=== PATIENT | male | born 1955 | race Caucasian/White ===

== ENCOUNTER 2016-10-13 15:49 | Emergency (ER) | payer MEDICARE, MEDICAID ==
[2016-10-13 16:03] VITALS: BP 156/96
--- NOTE | 2016-10-13 16:05 | EDM.PDOC ---
ED HPI GENERAL MEDICAL PROBLEM - General Chief Complaint: ENT Problem Stated Complaint: right ear Time Seen by Provider: 10/13/16 15:50 Source of Information: Reports: Patient, Family (Brother), Old records ([facility] chart/EMR) History Limitations: Reports: No limitations - History of Present Illness INITIAL COMMENTS - FREE TEXT/NARRATIVE: The patient was brought to the emergency room by his brother for evaluation of progressive clear nasal drainage and clear productive cough associated with some increasing vertigo during the last few days. Symptoms started at work on with the patient leaving work at about 10 a.m. that morning. He has not had an influenza booster this season. No history of fever or known exposure to infection. No history of recent headaches, other visual changes, diplopia, change in mental status, or other change in neurological status. He denies any true pain or otalgia, despite 5/10 full sensation in his right ear. Home Accu- Cheks have been stable including a blood sugar of 144 mg percent this morning Onset: gradual Onset Date: 10/08/16 Duration: Chronic, Getting worse Location: Reports: other (As above) Quality: Reports: Pressure, Same as previous episode Severity: mild Improves with: Reports: Rest Worsens with: Reports: Movement (Increased vertigo with head movement) Context: Reports: Other (As above) Associated Symptoms: Reports: cough w sputum. Denies: confusion, chest pain, diaphoresis, fever/chills, headaches, loss of appetite, malaise, nausea/vomiting , shortness of breath, syncope, weakness Treatments TOOL SMITH: Reports: Acetaminophen (Last Tylenol dose of 650 mg a.m. this morning), Other medication(s) (OTC cold medication earlier this month) Right Ear Pain Score (Numeric/FACES): 5 - Related Data Allergies Allergy/AdvReac Type Severity Reaction Status Date / Time No Known Allergies Allergy Verified 10/13/16 15:50 Home Meds: Home Meds Albuterol [Proair HFA] 1 puff INH Q6HR PRN 09/12/14 [History] Aspirin [Children's Aspirin] 81 mg PO QAM 09/12/14 [History] Betaxolol [Kerlone] 10 mg PO QAM 09/12/14 [History] Cholecalciferol (Vitamin D3) [Vitamin D3] 2,000 units PO QAM 09/12/14 [History] Colesevelam HCl [Welchol] 3.75 gm PO QAM 09/12/14 [History] Digoxin [Digox] 250 mcg PO QAM 09/12/14 [History] Hydroxychloroquine [Plaquenil] 200 mg PO QAM 09/12/14 [History] Ibuprofen 400 mg PO Q6HR PRN 09/12/14 [History] Lisinopril 10 mg PO QAM 09/12/14 [History] Omeprazole [Prilosec] 20 mg PO QAM 09/12/14 [History] metFORMIN [Glucophage] 1 tab PO BID 09/12/14 [History] Levothyroxine 150 mcg PO DAILY 10/22/15 [History] Dextromethorphan/guaiFENesin [Mucinex DM ER 600-30 MG] 1 tab PO BID #20 tab.er 10/13/16 [Rx] Meclizine [Antivert] 25 mg PO Q6H PRN #30 tablet 10/13/16 [Rx] Past Medical History HEENT History: Reports: None. Denies: Glaucoma, Hard of hearing, Impaired vision, Macular degeneration Cardiovascular History: Reports: Arrhythmia, CAD, Heart Failure, High cholesterol, Hypertension, Other (see below). Denies: Afib, Aneurysm, Blood clots/VTE/DVT, Heart murmur, AR, Pacemaker, Stents, Syncope Other Cardiovascular History: WPW syndrome with secondary tachycardia, PACs, PVCs, short run of nonsymptomatic ventricular tachycardia, complete right bundle branch block, fatty liver by CT scan Respiratory History: Reports: Asthma. Denies: PE, Sleep apnea Gastrointestinal History: Reports: Chronic constipation, Diverticulosis, Gastritis, GERD, Helicobacter pylori, Hiatal hernia, PUD, Other (see below) Other Gastrointestinal History: Sigmoid diverticulosis by CT scan, fatty liver, previously treated H. pylori, moderate hiatal hernia by CT scan Genitourinary History: Reports: BPH, Other (see below). Denies: Renal calculus , Retention, urinary, Urinary incontinence Other Genitourinary History: Benign renal cysts bilaterally by CT scan, history of questionable left sided hydronephrosis with negative workup and no procedures required. No history of nephrolithiasis Musculoskeletal History: Reports: Osteoarthritis. Denies: Fracture Neurological History: Reports: Other (see below) Other Neuro History: Mental retardation/Mental developmental delay Psychiatric History: Reports: None. Denies: Anxiety, Depression Endocrine/Metabolic History: Reports: Diabetes, type II, Hypothyroidism, Obesity /BMI 30+, Other (see below). Denies: IDDM, Osteoporosis Other Endocrine/Metabolic History: Benign thyroid nodules by ultrasound Hematologic History: Reports: None. Denies: Anemia, Blood transfusion(s), Iron deficiency Immunologic History: Reports: None. Denies: AIDS, HIV, SLE Oncologic (Cancer) History: Reports: None. Denies: Basal cell carcinoma, Hodgkin's Lymphoma, Leukemia, Lymphoma, Malignant melanoma, Non-Hodgkin's Lymphoma, Squamous cell carcinoma Dermatologic History: Reports: None. Denies: Eczema, Psoriasis - Infectious Disease History Infectious Disease History: Reports: Chicken pox, Helicobacter pylori, Measles, Mumps. Denies: C-difficile, Meningitis, Mononucleosis, MRSA, Pertussis ( whooping cough), Rubella, Scarlet fever, Shingles, TB, VRE - Past Surgical History HEENT Surgical History: Reports: Oral surgery, Other (see below) Other HEENT Surgeries/Procedures: [place] teeth extraction at about age 17 GI Surgical History: Reports: Colonoscopy, Other (see below) Other GI Surgeries/Procedures: Colonoscopy in 2013 - Past Imaging History Past Imaging History: Reports: Angiography (Heart catheterization at [facility] on 02/20/09 which was negative by patient history), Carotid US (06/25/04), CAT scan (CT of the abdomen and pelvis without contrast on 10/22/15 and 09/05/16, previous CT of the abdomen and pelvis on 04/29/13), MRI (Right knee on 08/21/14), Stress testing (Positive exercise portion of Cardiolite stress test for lateral wall cardiac ischemia on 06/10/04), Ultrasound (Abdominal ultrasound on 08/19/16, last thyroid ultrasound on 04/11/13) Social & Family History - Family History Cardiac: Reports: Bypass, CAD, AR, Other (see below) Other Cardiac Family History: Mother with CABG at age 49 with fatal AR at age 75 , father with fatal AR at age 48, brother from an AR at age 52, maternal grandfather with fatal AR at age 81, paternal grandfather with fatal AR in his 60s, 3 paternal uncles with fatal MIs in their 60s, paternal aunt with fatal AR in her 60s - Tobacco Use Smoking Status *Q: Never Smoker Smoking Cessation Information Provided To Patient: No Second Hand Smoke Exposure: No Second Hand Smoke Education Provided: No - Alcohol Use Alcohol Use History: No Days Per Week of Alcohol Use: 0 (No previous DWI, etc.) Alcohol Use in Last Twelve Months: No - Recreational Drug Use Recreational Drug Use: No Drug Use in Last 12 Months: No Recreational Drug Type: Denies: Amphetamines (Speed), Cocaine, Heroin, Inhalants (Glues, Solvents, Aerosols), LSD (Acid), Marijuana/Hashish, Methamphetamine, Morphine - Living Situation & Occupation Living situation: Reports: single (No children), with family (Brother Jaron) Occupation: employed ([employer]) ED ROS GENERAL - Review of Systems Review Of Systems: ROS reveals no pertinent complaints other than HPI. ED EXAM, GENERAL - Physical Exam Exam: See Below Exam Limited By: No limitations General Appearance: alert, WD/WN, no apparent distress Eye Exam: bilateral eye: EOMI, normal inspection (Mild vertigo with head movement without nystagmus), PERRL Ears: normal external exam, hearing grossly normal, normal TMs. No: normal canal (Moderate cerumen in the left EAC), hearing loss Nose: normal inspection, normal mucosa, no blood, clear rhinorrhea (Minimal) Throat/Mouth: Normal inspection, Normal lips, Normal teeth, Normal gums, Normal oropharynx, Normal voice, No airway compromise. No: Dysphagia, Perioral cyanosis Head: atraumatic, normocephalic. No: facial swelling, facial tenderness, sinus tenderness Neck: normal inspection, supple, non-tender, full range of motion. No: lymphadenopathy (L), lymphadenopathy (R), thyromegaly Respiratory/Chest: no respiratory distress, lungs clear, normal breath sounds, no accessory muscle use, chest non-tender. No: pleural rub, retractions Cardiovascular: normal peripheral pulses, regular rate, rhythm, no edema, no gallop, no JVD, no murmur, no rub. No: gallop/S3, gallop/S4, friction rub Peripheral Pulses: 2+: radial (L), radial (R) GI/Abdominal: normal bowel sounds, soft, non tender, no organomegaly, no distention, no abnormal bruit, no mass, other (Obese). No: guarding (Male) Exam: Deferred Rectal (Males) Exam: Deferred Back Exam: normal inspection, full range of motion. No: CVA tenderness (L), CVA tenderness (R), muscle spasm Extremities: normal range of motion, non-tender, normal capillary refill, pedal edema (Stable trace to +1 pedal/pretibial edema). No: Thalia's Sign Neurological: alert, oriented, CN II-XII intact, normal cognition, normal gait, no motor/sensory deficits, other ( stable mild mental retardation, no clinical orthostasis, dystaxia, etc.) Psychiatric: normal affect, normal mood Skin Exam: Warm, Dry, Intact, Normal color, No rash. No: Diaphoretic, Wound/ incision Lymphatic: no adenopathy Course - Vital Signs Last Recorded V/S: Last Vital Signs Temp 36.7 C 10/13/16 15:59 Pulse 83 10/13/16 15:59 Resp 20 10/13/16 15:59 BP 156/96 H 10/13/16 15:59 Pulse Ox 98 10/13/16 15:59 Vital Signs - 24 hr 10/13/16 15:59 Temperature [ 36.7 C Oral] Pulse, 83 Peripheral [ Left Brachial] Respiratory 20 Rate Blood Pressure 156/96 H [Left Upper Arm ] O2 Sat by Pulse 98 Oximetry - Orders/Labs/Meds Orders: Active Orders 24 hr Category Date Time Status Blood Glucose Check, Bedside [RC] STAT Care 10/13/16 16:05 Active Obtain Past Medical Record [OM.PC] Routine Oth 10/13/16 16:05 Active Labs: Accu-Chek of 153 mg percent Meds: Medications Discontinued Medications Generic Name Dose Route Start Last Admin Trade Name Freq PRN Reason Stop Dose Admin Methylprednisolone Acetate 80 mg 10/13/16 16:08 10/13/16 16:34 Depo-Medrol IM 10/13/16 16:09 80 mg ONETIME ONE Administration - Radiology Interpretation Free Text/Narrative:: None Departure - Departure Time of Disposition: 16:50 Disposition: Home, Self-Care 01 Clinical Impression: Hypothyroidism, Diabetes mellitus, Osteoarthritis, Hyperlipidemia, Heart disease, Peptic reflux disease, Viral labyrinthitis of right ear, Upper respiratory infection, Asthma, Hypertension Prescriptions: Dextromethorphan/guaiFENesin [Mucinex DM ER 600-30 MG] 1 tab PO BID #20 tab.er Meclizine [Antivert] 25 mg PO Q6H PRN #30 tablet PRN Reason: Dizziness Instructions: Labyrinthitis, [id number], Upper Respiratory Infection, Adult, [id number] Referrals: Mona Chavez, [employer] [Primary Care Provider] - Forms: ED Department Discharge, Return to Work/School Form Additional Instructions: 1. Follow up with your regular provider in 10-14 days as needed, if symptoms persist. 2. Tylenol 650 mg by mouth every 4 hours and/or OTC ibuprofen 2-3 tabs by mouth every 6 hours with food as directed./needed. 3. Your home blood sugars may be somewhat elevated during the next 1-2 weeks secondary to steroid injection given in the emergency room. Adjust diet appropriately 4. Sedation, dry mouth, confusion, etc. precautions with OTC meclizine 5. Work excuse- See Form - Problem List & Annotations (1) Viral labyrinthitis of right ear SNOMED Code(s): 391555757 Code(s): H83.01 - LABYRINTHITIS, RIGHT EAR Status: Acute Priority: High Current Visit: Yes Onset Date: ~10/08/16 Annotation/Comment:: IM Depo- Medrol given in the emergency room. OTC meclizine or symptomatic relief as per discharge instructions with sedation, etc. precautions given and discussed. Followup by regular provider depending on his clinical course. Work excuse provided (2) Upper respiratory infection SNOMED Code(s): 58026108 Code(s): J06.9 - ACUTE UPPER RESPIRATORY INFECTION, UNSPECIFIED Status: Acute Priority: High Current Visit: Yes Onset Date: 10/08/16 Annotation/ Comment:: Previous OTC cold preparations are to be discontinued with initiation of meclizine and Mucinex DM as per discharge instructions Qualifiers: URI type: unspecified viral URI Qualified Code(s): J06.9 - Acute upper respiratory infection, unspecified; B97.89 - Other viral agents as the cause of diseases classified elsewhere (3) Asthma SNOMED Code(s): 239740669 Code(s): J45.909 - UNSPECIFIED ASTHMA, UNCOMPLICATED Status: Acute Priority: Medium Current Visit: Yes Annotation/Comment:: No significant bronchitic-type symptoms with mostly clear mildly productive cough during the last few days likely secondary to viral infection with no fever, leukocytosis, etc.. Strict compliance with inhaler use was encouraged. Depo-Medrol will also be beneficial for his asthma (4) Diabetes mellitus SNOMED Code(s): 98457854 Code(s): E11.9 - TYPE 2 DIABETES MELLITUS WITHOUT COMPLICATIONS Status: Acute Priority: Medium Current Visit: Yes Annotation/Comment:: Blood sugars have been under good control by patient history as above. He was warned about possible increased morning Accu-Cheks secondary to Depo-Medrol injection today with dietary adjustments as needed as per discharge instructions (5) Heart disease SNOMED Code(s): 86450957 Code(s): I51.9 - HEART DISEASE, UNSPECIFIED Status: Chronic Priority: Medium Current Visit: Yes Annotation/Comment:: No anginal complaints with negative previous distant heart catheterization. Continue to observe his blood pressures closely to his regular provider. (6) Hyperlipidemia SNOMED Code(s): 67993316 Code(s): E78.5 - HYPERLIPIDEMIA, UNSPECIFIED Status: Acute Priority: Medium Current Visit: Yes Annotation/Comment:: Under therapy and watched by his regular providers (7) Hypothyroidism SNOMED Code(s): 41842126 Code(s): E03.9 - HYPOTHYROIDISM, UNSPECIFIED Status: Acute Priority: Medium Current Visit: Yes Annotation/Comment:: Patient denies medication noncompliance, although this has been a problem in the past (8) Osteoarthritis SNOMED Code(s): 527454338 Code(s): M19.90 - UNSPECIFIED OSTEOARTHRITIS, UNSPECIFIED SITE Status: Chronic Priority: Medium Current Visit: Yes Annotation/Comment:: Stable by history (9) Peptic reflux disease SNOMED Code(s): 63254064 Code(s): K21.9 - GASTRO-ESOPHAGEAL REFLUX DISEASE WITHOUT ESOPHAGITIS Status: Chronic Priority: Medium Current Visit: Yes Annotation/Comment:: Stable by history with previous large hiatal hernia by CT scan with previous history of treated H. pylori. (10) Hypertension SNOMED Code(s): 23352006 Code(s): I10 - ESSENTIAL (PRIMARY) HYPERTENSION Status: Chronic Priority : Medium Current Visit: Yes Annotation/Comment:: Mildly elevated today. Continue to observe closely by his regular provider Qualifiers: Hypertension type: essential hypertension Qualified Code(s): I10 - Essential (primary) hypertension - Problem List Review Problem List Initiated/Reviewed/Updated: Yes - My Orders Last 24 Hours: My Active Orders 10/13/16 16:05 Blood Glucose Check, Bedside [RC] STAT Obtain Past Medical Record [OM.PC] Routine - Assessment/Plan Last 24 Hours: My Active Orders 10/13/16 16:05 Blood Glucose Check, Bedside [RC] STAT Obtain Past Medical Record [OM.PC] Routine Assessment:: As above Plan: As above. Extensive precautions were given to the patient and his brother, who are in agreement with the treatment plan. See Patient Instructions for further treatment and plan.
[2016-10-13] MEDS ORDERED: methylPREDNISolone Acetate 80 MG/ML SDV IM ONE (16:08)
== END 2016-10-13 16:50 | disposition home or self-care (01) ==
LOC: LL.ED 15:49
DX: H83.01 Labyrinthitis, right ear (principal); E03.9 Hypothyroidism, unspecified; E11.9 Type 2 diabetes mellitus without complications; M19.90 Unspecified osteoarthritis, unspecified site; E78.5 Hyperlipidemia, unspecified; K21.9 Gastro-esophageal reflux disease without esophagitis; J45.909 Unspecified asthma, uncomplicated; J06.9 Acute upper respiratory infection, unspecified; I25.10 Atherosclerotic heart disease of native coronary artery without angina pectoris; E78.00 Pure hypercholesterolemia, unspecified; I11.0 Hypertensive heart disease with heart failure
CPT/HCPCS: 96372; 99283; J1040

== ENCOUNTER 2017-06-03 15:33 | Emergency (ER) | payer MEDICARE, MEDICAID ==
[2017-06-03 15:44] VITALS: BP 187/83
--- NOTE | 2017-06-03 15:45 | EDM.PDOC ---
ED HPI GENERAL MEDICAL PROBLEM - General Chief Complaint: Flank Pain Stated Complaint: right flank pain Time Seen by Provider: 06/03/17 15:39 Source of Information: Reports: Patient History Limitations: Reports: No Limitations - History of Present Illness INITIAL COMMENTS - FREE TEXT/NARRATIVE: Patient presents to the ER with 2 day history of right flank pain described as stabbing. Patient states that 2 days ago has some blood in his urine but none now. Onset: Gradual Duration: Day(s): (2 days) Location: Reports: Abdomen (Right flank) Quality: Reports: Stabbing Severity: Moderate Improves with: Reports: None Worsens with: Reports: Other (Lying down) Context: Reports: Sick Contact Associated Symptoms: Reports: Nausea/Vomiting - Related Data Allergies Allergy/AdvReac Type Severity Reaction Status Date / Time No Known Allergies Allergy Verified 10/13/16 15:50 Home Meds: Home Meds Albuterol [Proair HFA] 1 puff INH Q6HR PRN 09/12/14 [History] Aspirin [Children's Aspirin] 81 mg PO QAM 09/12/14 [History] Betaxolol [Kerlone] 10 mg PO QAM 09/12/14 [History] Cholecalciferol (Vitamin D3) [Vitamin D3] 2,000 units PO QAM 09/12/14 [History] Colesevelam HCl [Welchol] 3.75 gm PO QAM 09/12/14 [History] Hydroxychloroquine [Plaquenil] 200 mg PO QAM 09/12/14 [History] Ibuprofen 400 mg PO Q6HR PRN 09/12/14 [History] Lisinopril 10 mg PO QAM 09/12/14 [History] Omeprazole [Prilosec] 20 mg PO QAM 09/12/14 [History] metFORMIN [Glucophage] 1 tab PO BID 09/12/14 [History] Levothyroxine 150 mcg PO DAILY 10/22/15 [History] Dextromethorphan/guaiFENesin [Mucinex DM ER 600-30 MG] 1 tab PO BID #20 tab.er 10/13/16 [Rx] Meclizine [Antivert] 25 mg PO Q6H PRN #30 tablet 10/13/16 [Rx] Past Medical History HEENT History: Reports: None. Denies: Glaucoma, Hard of Hearing, Impaired Vision, Macular Degeneration Cardiovascular History: Reports: Arrhythmia, CAD, Heart Failure, High Cholesterol, Hypertension, Other (See Below) Other Cardiovascular History: WPW syndrome with secondary tachycardia, PACs, PVCs, short run of nonsymptomatic ventricular tachycardia, complete right bundle branch block, fatty liver by CT scan Respiratory History: Reports: Asthma. Denies: PE, Sleep Apnea Gastrointestinal History: Reports: Chronic Constipation, Diverticulosis, Gastritis, GERD, Helicobacter Pylori, Hiatal Hernia, PUD, Other (See Below) Other Gastrointestinal History: Sigmoid diverticulosis by CT scan, fatty liver, previously treated H. pylori, moderate hiatal hernia by CT scan Genitourinary History: Reports: BPH, Other (See Below) Other Genitourinary History: Benign renal cysts bilaterally by CT scan, history of questionable left sided hydronephrosis with negative workup and no procedures required. No history of nephrolithiasis Musculoskeletal History: Reports: Osteoarthritis. Denies: Fracture Neurological History: Reports: Other (See Below) Other Neuro History: Mental retardation/Mental developmental delay Psychiatric History: Reports: None. Denies: Anxiety, Depression Endocrine/Metabolic History: Reports: Diabetes, Type II, Hypothyroidism, Obesity /BMI 30+, Other (See Below) Other Endocrine/Metabolic History: Benign thyroid nodules by ultrasound Hematologic History: Reports: None. Denies: Anemia, Blood Transfusion(s), Iron Deficiency Immunologic History: Reports: None. Denies: AIDS, HIV, SLE Oncologic (Cancer) History: Reports: None. Denies: Basal Cell Carcinoma, Hodgkin's Lymphoma, Leukemia, Lymphoma, Malignant Melanoma, Non-Hodgkin's Lymphoma, Squamous Cell Carcinoma Dermatologic History: Reports: None. Denies: Eczema, Psoriasis - Infectious Disease History Infectious Disease History: Reports: Chicken Pox, Helicobacter Pylori, Measles, Mumps - Past Surgical History HEENT Surgical History: Reports: Oral Surgery, Other (See Below) GI Surgical History: Reports: Colonoscopy, Other (See Below) - Past Imaging History Past Imaging History: Reports: Angiography, Carotid US, CAT Scan, MRI, Stress Testing, Ultrasound Social & Family History - Family History Cardiac: Reports: Bypass, CAD, IA, Other (See Below) Other Cardiac Family History: Mother with CABG at age 49 with fatal IA at age 75 , father with fatal IA at age 48, brother from an IA at age 52, maternal grandfather with fatal IA at age 81, paternal grandfather with fatal IA in his 60s, 3 paternal uncles with fatal MIs in their 60s, paternal aunt with fatal IA in her 60s - Tobacco Use Smoking Status *Q: Never Smoker Second Hand Smoke Exposure: No - Alcohol Use Days Per Week of Alcohol Use: 0 (No previous DWI, etc.) - Recreational Drug Use Recreational Drug Use: No Drug Use in Last 12 Months: No - Living Situation & Occupation Living situation: Reports: Single, with Family Occupation: Employed ED ROS GENERAL - Review of Systems Review Of Systems: See Below Constitutional: Reports: Other (Severe right flank pain stabbing) HEENT: Reports: No Symptoms Respiratory: Reports: No Symptoms Cardiovascular: Reports: No Symptoms Endocrine: Reports: High Glucose GI/Abdominal: Reports: Other (Right flank pain) : Reports: Flank Pain (Described as stabbing) Musculoskeletal: Reports: No Symptoms Skin: Reports: No Symptoms Neurological: Reports: No Symptoms Psychiatric: Reports: No Symptoms Hematologic/Lymphatic: Reports: No Symptoms ED EXAM, GENERAL - Physical Exam Exam: See Below Exam Limited By: No Limitations General Appearance: Alert, WD/WN, Moderate Distress Eye Exam: Bilateral Eye: EOMI, Normal Inspection Ears: Normal External Exam, Normal Canal, Hearing Grossly Normal, Normal TMs Ear Exam: Bilateral Ear: Auricle Normal, Canal Normal, TM normal Nose: Normal Inspection, Normal Mucosa, No Blood Throat/Mouth: Normal Inspection, Normal Lips, Normal Teeth, Normal Gums, Normal Oropharynx, Normal Voice, No Airway Compromise Head: Atraumatic, Normocephalic Neck: Normal Inspection, Supple, Non-Tender, Full Range of Motion Respiratory/Chest: No Respiratory Distress, Lungs Clear, Normal Breath Sounds, No Accessory Muscle Use, Chest Non-Tender Cardiovascular: Normal Peripheral Pulses, Regular Rate, Rhythm, No Edema, No Gallop, No JVD, No Rub, Systolic Murmur GI/Abdominal: Normal Bowel Sounds, Soft, Non-Tender, No Organomegaly, No Distention, Pelvis Stable, Other (Right flank tenderness to percussion) (Male) Exam: Deferred Rectal (Males) Exam: Deferred Back Exam: CVA Tenderness (R) Extremities: Normal Inspection, Normal Range of Motion, Non-Tender, Normal Capillary Refill, No Pedal Edema Neurological: Alert, Oriented, CN II-XII Intact, Normal Cognition, Normal Gait, Normal Reflexes, No Motor/Sensory Deficits Psychiatric: Normal Affect Skin Exam: Warm, Dry, Intact, Normal Color, No Rash Lymphatic: No Adenopathy Course - Vital Signs Last Recorded V/S: Last Vital Signs Temp 98.3 F 06/03/17 15:43 Pulse 96 06/03/17 15:43 Resp 18 06/03/17 15:43 BP 187/83 H 06/03/17 15:43 Pulse Ox 97 06/03/17 15:43 - Orders/Labs/Meds Orders: Active Orders 24 hr Category Date Time Status Abdomen Pelvis wo Cont [CT] Stat Exams 06/03/17 16:08 Ordered BASIC METABOLIC PANEL,BMP [CHEM] Stat Lab 06/03/17 15:37 Ordered UA W/MICROSCOPIC [URIN] Stat Lab 06/03/17 15:38 Uncollected Sodium Chloride 0.9% [Saline Flush] Med 06/03/17 16:04 Active 10 ml FLUSH ASDIRECTED PRN Saline Lock Insert [OM.PC] Routine Oth 06/03/17 16:04 Ordered Medication Orders Sodium Chloride (Saline Flush) 10 ml FLUSH ASDIRECTED PRN PRN Reason: Keep Vein Open Labs: Laboratory Tests 06/03/17 Range/Units 16:00 WBC 8.3 (4.0-10.2) K/uL RBC 5.06 (4.33-5.41) M/uL Hgb 15.7 (13.1-16.8) g/dL Hct 47.1 (39.0-49.0) % MCV 93.1 (84.0-98.0) fL MCH 31.0 (28.2-33.3) pg MCHC 33.3 (31.7-36.0) g/dL RDW 13.1 (11.2-14.1) % Plt Count 244 (150-350) K/uL Neut % (Auto) 59.4 (45.0-80.0) % Lymph % (Auto) 27.7 (10.0-50.0) % [place] % (Auto) 7.7 (2.0-14.0) % Eos % (Auto) 4.8 (0.0-5.0) % Baso % (Auto) 0.4 (0.0-2.0) % Neut # (Auto) 4.94 (1.40-7.00) K/uL Lymph # (Auto) 2.30 (0.50-3.50) K/uL [place] # (Auto) 0.64 (0.00-1.00) K/uL Eos # (Auto) 0.40 (0.00-0.50) K/uL Baso # (Auto) 0.03 (0.00-0.20) K/uL Meds: Medications Generic Name Dose Route Start Last Admin Trade Name Freq PRN Reason Stop Dose Admin Sodium Chloride 10 ml 06/03/17 16:04 Saline Flush FLUSH ASDIRECTED PRN Keep Vein Open Discontinued Medications Generic Name Dose Route Start Last Admin Trade Name Freq PRN Reason Stop Dose Admin Hydromorphone HCl 1 mg 06/03/17 15:53 06/03/17 16:07 Dilaudid IVPUSH 06/03/17 15:54 1 mg ONETIME ONE Administration - Re-Assessments/Exams Free Text/Narrative Re-Assessment/Exam: 06/03/17 17:15 CAT scan negative for stones appendix appear normal UA negative for nitrates and leukocytes trace of protein secondary to diabetes Departure - Departure Time of Disposition: 17:16 Disposition: Home, Self-Care 01 Clinical Impression: Muscle strain - Discharge Information Referrals: Mona Chavez NP [Primary Care Provider] - Forms: ED Department Discharge Care Plan Goals: Patient sent home on Motrin 200 mg take 2 tablets every 6 hours for pain follow- up with primary or return to ER if worsen or not improving - My Orders Last 24 Hours: My Active Orders 06/03/17 15:37 BASIC METABOLIC PANEL,BMP [CHEM] Stat 06/03/17 15:38 UA W/MICROSCOPIC [URIN] Stat 06/03/17 16:04 Sodium Chloride 0.9% [Saline Flush] 10 ml FLUSH ASDIRECTED PRN Saline Lock Insert [OM.PC] Routine 06/03/17 16:08 Abdomen Pelvis wo Cont [CT] Stat - Assessment/Plan Last 24 Hours: My Active Orders 06/03/17 15:37 BASIC METABOLIC PANEL,BMP [CHEM] Stat 06/03/17 15:38 UA W/MICROSCOPIC [URIN] Stat 06/03/17 16:04 Sodium Chloride 0.9% [Saline Flush] 10 ml FLUSH ASDIRECTED PRN Saline Lock Insert [OM.PC] Routine 06/03/17 16:08 Abdomen Pelvis wo Cont [CT] Stat
[2017-06-03] MEDS ORDERED: HYDROmorphone 1 MG/ML Syringe IVPUSH ONE (15:53)
[2017-06-03] MEDS ORDERED: Sodium Chloride 0.9% 10 ML Syringe FLUSH PRN (16:04)
[2017-06-03 16:26] LABS: CHLORIDE,CL 102 mmol/L (98-107); SODIUM,NA 138 mmol/L (136-145)
== END 2017-06-03 17:43 | disposition home or self-care (01) ==
LOC: LL.ED 15:33
DX: T14.8XXA Other injury of unspecified body region, initial encounter (principal); I11.0 Hypertensive heart disease with heart failure; I50.9 Heart failure, unspecified; J45.909 Unspecified asthma, uncomplicated; E11.9 Type 2 diabetes mellitus without complications; E03.9 Hypothyroidism, unspecified; Z79.82 Long term (current) use of aspirin; Z79.84 Long term (current) use of oral hypoglycemic drugs; Z79.899 Other long term (current) drug therapy; X58.XXXA Exposure to other specified factors, initial encounter
CPT/HCPCS: 36415; 74176; 80048; 81001; 85025; 96374; 99284; J1170; J7050

== ENCOUNTER 2017-09-01 02:50 | Emergency (ER) | payer MEDICAID, MEDICARE ==
[2017-09-01 03:10] VITALS: BP 139/87
[2017-09-01] MEDS ORDERED: Albuterol/Ipratropium 3.0-0.5 MG/3 ML Neb Soln NEB ONE (03:18)
--- NOTE | 2017-09-01 03:18 | EDM.PDOC ---
ED HPI GENERAL MEDICAL PROBLEM - General Chief Complaint: General Stated Complaint: R RIB PAIN Time Seen by Provider: 09/01/17 03:10 Source of Information: Reports: Patient, Old Records ([facility] chart/EMR) History Limitations: Reports: Altered Mental Status (Mental deficit) - History of Present Illness INITIAL COMMENTS - FREE TEXT/NARRATIVE: The patient was brought to the emergency room via private automobile by his brother, Jaron, for evaluation of sudden onset sharp right lower anterior rib/ chest wall pain, which occurred when he coughed at about 00:30 a.m. this morning. He has a 2 day history of mild clear nasal drainage and nonproductive cough with symptoms improved with twice a day inhaler use and Mucinex DM. The patient denies any other chest pain/pressure, heart flutter, dizziness, orthostasis, orthopnea, diaphoresis, paresthesias, recent decreased exercise tolerance, or any other anginal-type symptoms. No recent history of abdominal pain, heartburn, nausea, diarrhea, melena, gross hematochezia, or any food intolerance, including fatty foods, etc.. He denies any fever or known exposure to infection. He did receive an influenza booster this season. He also denies any gross hematuria, colic, or other UTI symptoms. No history of recent headaches, visual changes, diplopia, change in mental status, or other change in neurological status. His diabetes has been under good control with Accu- Cheks normally taken in the a.m., which was in the 80s yesterday morning Onset: Today, Sudden Onset Date: 09/01/17 Onset Time: 00:30 Duration: Constant Location: Reports: Chest. Denies: Head, Face, Neck, Abdomen, Back, Upper Extremity, Left, Upper Extremity, Right, Generalized, Radiates to Quality: Reports: Sharp, Stabbing Severity: Severe Improves with: Reports: Rest Worsens with: Reports: Movement (Inspiration) Context: Reports: Other (As above) Associated Symptoms: Reports: Confusion, Chest Pain, Cough. Denies: cough w sputum, Diaphoresis, Fever/Chills, Headaches, Loss of Appetite, Malaise, Nausea/ Vomiting, Shortness of Breath, Syncope, Weakness Treatments [employer]: Reports: NSAIDS (400 mg of OTC ibuprofen immediately prior to arrival) Right Thoracic Pain Score (Numeric/FACES): 10 - Related Data Allergies Allergy/AdvReac Type Severity Reaction Status Date / Time No Known Allergies Allergy Verified 09/01/17 03:03 Home Meds: Home Meds Albuterol [Proair HFA] 1 puff INH Q6HR PRN 09/12/14 [History] Aspirin [Children's Aspirin] 81 mg PO QAM 09/12/14 [History] Betaxolol [Kerlone] 10 mg PO QAM 09/12/14 [History] Cholecalciferol (Vitamin D3) [Vitamin D3] 2,000 units PO QAM 09/12/14 [History] Colesevelam HCl [Welchol] 3.75 gm PO QAM 09/12/14 [History] Hydroxychloroquine [Plaquenil] 200 mg PO QAM 09/12/14 [History] Lisinopril 10 mg PO QAM 09/12/14 [History] Omeprazole [Prilosec] 20 mg PO QAM 09/12/14 [History] metFORMIN [Glucophage] 1 tab PO BID 09/12/14 [History] Levothyroxine 150 mcg PO DAILY 10/22/15 [History] Dextromethorphan/guaiFENesin [Mucinex DM ER 600-30 MG] 1 tab PO BID #20 tab.er 10/13/16 [Rx] Past Medical History HEENT History: Reports: None. Denies: Allergic Rhinitis, Glaucoma, Hard of Hearing, Impaired Vision, Macular Degeneration Cardiovascular History: Reports: Arrhythmia, CAD, Heart Failure, High Cholesterol, Hypertension, Other (See Below). Denies: Afib, Aneurysm, Blood Clots/VTE/DVT, Bypass, Heart Murmur, IN, Pacemaker, PTCA, Stents, Syncope Other Cardiovascular History: WPW syndrome with secondary tachycardia, PACs, PVCs, short run of nonsymptomatic ventricular tachycardia, complete right bundle branch block, fatty liver by CT scan Respiratory History: Reports: Asthma, Bronchitis, Recurrent. Denies: COPD, PE, Sleep Apnea Gastrointestinal History: Reports: Chronic Constipation, Diverticulosis, Gastritis, GERD, Helicobacter Pylori, Hiatal Hernia, PUD, Other (See Below). Denies: Celiac Disease, Cholelithiasis, Chronic Diarrhea, Colon Polyp, GI Bleed , Inflammatory Bowel Disease, Irritable Bowel Syndrome Other Gastrointestinal History: Sigmoid diverticulosis by CT scan, fatty liver, previously treated H. pylori, moderate hiatal hernia by CT scan Genitourinary History: Reports: BPH, Hydronephrosis, Renal Calculus, Other (See Below). Denies: Acute Renal Failure, Chronic Renal Insuffiency, Urinary Incontinence, UTI, Recurrent Other Genitourinary History: Benign renal cysts bilaterally by CT scan, history of left sided nephrolithiasis with previous hydronephrosis Musculoskeletal History: Reports: Arthritis, Back Pain, Chronic, Neck Pain, Chronic, Osteoarthritis. Denies: Fracture Neurological History: Reports: Other (See Below) Other Neuro History: Mental retardation/Mental developmental delay Psychiatric History: Reports: None. Denies: Anxiety, Depression Endocrine/Metabolic History: Reports: Diabetes, Type II, Hypothyroidism, Obesity /BMI 30+, Other (See Below). Denies: IDDM, Osteoporosis Other Endocrine/Metabolic History: Benign thyroid nodules by ultrasound Hematologic History: Reports: None. Denies: Anemia, Blood Transfusion(s), Iron Deficiency Immunologic History: Reports: None. Denies: AIDS, HIV, SLE Oncologic (Cancer) History: Reports: None. Denies: Basal Cell Carcinoma, Hodgkin's Lymphoma, Leukemia, Lymphoma, Malignant Melanoma, Non-Hodgkin's Lymphoma, Squamous Cell Carcinoma Dermatologic History: Reports: None. Denies: Eczema, Psoriasis - Infectious Disease History Infectious Disease History: Reports: Chicken Pox, Helicobacter Pylori, Measles, Mumps. Denies: C-Difficile, Meningitis, Mononucleosis, MRSA, Pertussis ( Whooping Cough), Rheumatic Fever, Rubella, Scarlet Fever, Shingles, TB, VRE - Past Surgical History Head Surgeries/Procedures: Reports: None HEENT Surgical History: Reports: Oral Surgery, Other (See Below) Other HEENT Surgeries/Procedures: [place] teeth extraction at about age 17 GI Surgical History: Reports: Colonoscopy, Other (See Below) Other GI Surgeries/Procedures: Colonoscopy in 2013 - Past Imaging History Past Imaging History: Reports: Angiography (Heart catheterization at [facility] on 02/20/09 which was negative by patient history), Carotid US (06/25/04), CAT Scan (CT of the abdomen and pelvis on 06/03/17, 09/05/16, 10/22/15, and 04/29/13), MRI (Right knee on 08/21/14), Stress Testing (Positive exercise portion of Cardiolite stress test for lateral wall cardiac ischemia on 06/10/04) , Ultrasound (Abdominal on 08/19/16. Last thyroid ultrasound on 04/11/13) Social & Family History - Family History Cardiac: Reports: Bypass, CAD, IN, Other (See Below) Other Cardiac Family History: Mother with CABG at age 49 with fatal IN at age 75 , father with fatal IN at age 48, brother from an IN at age 52, maternal grandfather with fatal IN at age 81, paternal grandfather with fatal IN in his 60s, 3 paternal uncles with fatal MIs in their 60s, paternal aunt with fatal IN in her 60s - Tobacco Use Smoking Status *Q: Never Smoker Tobacco Use Within Last Twelve Months: No Used Tobacco, but Quit: No Smoking Cessation Information Provided To Patient: No Second Hand Smoke Exposure: No Second Hand Smoke Education Provided: No - Caffeine Use Caffeine Use: Denies: Coffee, Energy Drinks, Soda, Tea - Alcohol Use Alcohol Use History: No Days Per Week of Alcohol Use: 0 (No previous DWI, etc.) Alcohol Use in Last Twelve Months: No - Recreational Drug Use Recreational Drug Use: No Drug Use in Last 12 Months: No Recreational Drug Type: Denies: Amphetamines (Speed), Cocaine, Heroin, Inhalants (Glues, Solvents, Aerosols), LSD (Acid), Marijuana/Hashish, Methamphetamine, Morphine - Living Situation & Occupation Living situation: Reports: Single (No children), with Family (Brother Jaron) Occupation: Employed ([employer]) ED ROS GENERAL - Review of Systems Review Of Systems: ROS reveals no pertinent complaints other than HPI. ED EXAM, GENERAL - Physical Exam Exam: See Below Exam Limited By: No Limitations General Appearance: Alert, WD/WN, No Apparent Distress Eye Exam: Bilateral Eye: EOMI, Normal Inspection (No nystagmus), PERRL Ears: Normal External Exam, Normal Canal (Moderate cerumen in the EACs bilaterally), Hearing Grossly Normal, Normal TMs Nose: Normal Mucosa, No Blood, Nasal Drainage, Clear Rhinorrhea (Mild bilateral) Throat/Mouth: Normal Inspection, Normal Lips, Normal Teeth, Normal Gums, Normal Oropharynx, Normal Voice, No Airway Compromise. No: Dysphagia, Perioral Cyanosis Head: Atraumatic, Normocephalic. No: Facial Swelling, Facial Tenderness, Sinus Tenderness Neck: Normal Inspection, Supple, Non-Tender, Full Range of Motion. No: Lymphadenopathy (L), Lymphadenopathy (R), Thyromegaly Respiratory/Chest: No Respiratory Distress, No Accessory Muscle Use, Rales ( Mild diffuse bilateral), Rhonchi (Mild diffuse bilateral), Wheezing (Mild diffuse bilateral). No: Chest Non-Tender (Moderate Palpation pain over the anterior lower chest wall/rib region with no crepitation, ecchymosis, deformity , etc.), Pleural Rub, Retractions Cardiovascular: Normal Peripheral Pulses, Regular Rate, Rhythm, No Edema, No Gallop, No JVD, No Murmur, No Rub. No: Gallop/S3, Gallop/S4, Friction Rub Peripheral Pulses: 2+: Radial (L), Radial (R) GI/Abdominal: Normal Bowel Sounds, Soft, Non-Tender, No Organomegaly, No Distention, No Abnormal Bruit, No Mass, Other (Obese). No: Guarding, Hernia (Male) Exam: Deferred Rectal (Males) Exam: Deferred Back Exam: Normal Inspection, Full Range of Motion. No: CVA Tenderness (L), CVA Tenderness (R), Muscle Spasm Extremities: Normal Range of Motion, Non-Tender, Normal Capillary Refill, Pedal Edema (+1 bilateral pedal/pretibial edema). No: Thalia's Sign Neurological: Alert, Oriented, CN II-XII Intact, Normal Cognition, Normal Gait, No Motor/Sensory Deficits, Other (Stable baseline mental deficit) Psychiatric: Normal Affect, Normal Mood Skin Exam: Warm, Dry, Intact, Normal Color, No Rash. No: Diaphoretic, Ecchymosis, Petechiae, Wound/Incision Lymphatic: No Adenopathy Course - Vital Signs Last Recorded V/S: Last Vital Signs Temp 36.7 C 09/01/17 02:51 Pulse 91 09/01/17 03:10 Resp 24 H 09/01/17 03:10 BP 139/87 09/01/17 03:10 Pulse Ox 98 09/01/17 03:10 Vital Signs - 24 hr 09/01/17 09/01/17 02:51 03:10 Temperature [ 36.7 C Temporal] Pulse, 96 91 Peripheral [ Right Pulse Oximetry] Respiratory 24 H 24 H Rate Blood Pressure 160/105 H 139/87 [Right Upper Arm] O2 Sat by Pulse 98 98 Oximetry - Orders/Labs/Meds Orders: Active Orders 24 hr Category Date Time Status RT Aerosol Therapy [RC] ASDIRECTED Care 09/01/17 03:20 Active Chest 2V [CR] Urgent Exams 09/01/17 03:28 Ordered Obtain Past Medical Record [OM.PC] Routine Oth 09/01/17 03:18 Active Labs: None Meds: Medications Discontinued Medications Generic Name Dose Route Start Last Admin Trade Name Buck PRN Reason Stop Dose Admin Albuterol/Ipratropium 3 ml 09/01/17 03:18 09/01/17 03:24 Duoneb 3.0-0.5 Mg/3 Ml NEB 09/01/17 03:19 3 ml ONETIME ONE Administration Meperidine HCl 50 mg 09/01/17 03:20 Demerol IM 09/01/17 03:21 ONETIME ONE Meperidine HCl 50 mg 09/01/17 03:29 Demerol IM 09/01/17 03:30 ONETIME ONE Methylprednisolone Acetate 80 mg 09/01/17 03:21 09/01/17 03:26 Depo-Medrol IM 09/01/17 03:22 80 mg ONETIME ONE Administration Promethazine HCl 50 mg 09/01/17 03:19 09/01/17 03:26 Phenergan IM 09/01/17 03:20 50 mg ONETIME ONE Administration - Radiology Interpretation Free Text/Narrative:: Chest x-ray, PA and lateral shows evidence of mild to moderate pulmonary obstructive disease with possible pulmonary hypertension but no cardiomegaly, CHF, pulmonary infiltrates, pneumothorax, rib fractures, etc. Departure - Departure Time of Disposition: 04:15 Disposition: Home, Self-Care 01 Condition: Good Clinical Impression: Peptic reflux disease, Diabetes mellitus, Asthma, Osteoarthritis, Chest wall pain, Bronchitis, Hyperlipidemia, Hypothyroidism Hypertension Qualifiers: Hypertension type: essential hypertension Qualified Code(s): I10 - Essential ( primary) hypertension - Discharge Information Instructions: Chest Wall Pain, [id number], Pleurisy, [id number] Referrals: Mona Chavez NP [Primary Care Provider] - Forms: ED Department Discharge, ED Return to Work/School Form Additional Instructions: 1. Follow up with your regular provider in 10-14 days as needed, if symptoms persist. 2. Tylenol 650 mg by mouth every 4 hours and/or OTC ibuprofen 2-3 tabs by mouth every 6 hours with food as directed./needed. 3. BenGay or equivalent, heating pad, and/or ice packs as directed. 4. Sedation precautions with no driving, etc. for 12 hours because of emergency room medications. 5. Work excuse- See Form 6. Continue to use your Mucinex DM 2 times a day for at least 10 days 7. Continue to use your inhaler 4 times a day with every 4 hours as needed for at least 10 days - Problem List & Annotations (1) Chest wall pain SNOMED Code(s): 844083878 Code(s): R07.89 - OTHER CHEST PAIN Status: Acute Priority: High Current Visit: Yes Onset Date: 09/01/17 Annotation/Comment:: Chest wall pain versus pleurisy with overall improvement in symptoms with medical therapy as above. Symptomatic treatment as per discharge instructions. Work excuse provided with sedation precautions also given (2) Asthma SNOMED Code(s): 542538594 Code(s): J45.909 - UNSPECIFIED ASTHMA, UNCOMPLICATED Status: Acute Priority: Medium Current Visit: Yes Annotation/Comment:: Mild bronchitic- type symptoms with nonproductive cough during the last couple of days likely secondary to viral infection with no fever, etc.. Strict compliance with inhaler use was encouraged with patient once again counseled on proper inhaler use. Depo-Medrol was given, which will be beneficial for his asthma and chest wall pain/? Pleurisy (3) Bronchitis SNOMED Code(s): 20962310 Code(s): J40 - BRONCHITIS, NOT SPECIFIED ACUTE OR CHRONIC Status: Acute Priority: High Current Visit: Yes Onset Date: ~08/30/17 Annotation/ Comment:: Mild viral bronchitis with no indication for antibiotic therapy at this time. Note no fever (4) Diabetes mellitus SNOMED Code(s): 21044505 Code(s): E11.9 - TYPE 2 DIABETES MELLITUS WITHOUT COMPLICATIONS Status: Chronic Priority: Medium Current Visit: Yes Annotation/Comment:: Blood sugars have been under good control by patient history as above. He was warned about possible increased morning Accu-Cheks secondary to Depo-Medrol injection today with dietary adjustments as needed. (5) Hyperlipidemia SNOMED Code(s): 37527059 Code(s): E78.5 - HYPERLIPIDEMIA, UNSPECIFIED Status: Acute Priority: Medium Current Visit: Yes Annotation/Comment:: Under therapy and watched by his regular providers (6) Hypertension SNOMED Code(s): 09692850 Code(s): I10 - ESSENTIAL (PRIMARY) HYPERTENSION Status: Acute Current Visit: Yes Annotation/Comment:: Blood pressure initially somewhat elevated secondary to his pain. Continue to observe closely by his regular providers Qualifiers: Hypertension type: essential hypertension Qualified Code(s): I10 - Essential (primary) hypertension (7) Hypothyroidism SNOMED Code(s): 67872774 Code(s): E03.9 - HYPOTHYROIDISM, UNSPECIFIED Status: Acute Priority: Medium Current Visit: Yes Annotation/Comment:: Patient denies medication noncompliance, although this has been a problem in the past (8) Osteoarthritis SNOMED Code(s): 095980014 Code(s): M19.90 - UNSPECIFIED OSTEOARTHRITIS, UNSPECIFIED SITE Status: Chronic Priority: Medium Current Visit: Yes Annotation/Comment:: Stable by history (9) Peptic reflux disease SNOMED Code(s): 48889653 Code(s): K21.9 - GASTRO-ESOPHAGEAL REFLUX DISEASE WITHOUT ESOPHAGITIS Status: Chronic Priority: Medium Current Visit: Yes Annotation/Comment:: Stable by history with previous large hiatal hernia by CT scan and previous history of treated H. pylori. - Problem List Review Problem List Initiated/Reviewed/Updated: Yes - My Orders Last 24 Hours: My Active Orders 09/01/17 03:18 Obtain Past Medical Record [OM.PC] Routine 09/01/17 03:20 RT Aerosol Therapy [RC] ASDIRECTED 09/01/17 03:28 Chest 2V [CR] Urgent - Assessment/Plan Last 24 Hours: My Active Orders 09/01/17 03:18 Obtain Past Medical Record [OM.PC] Routine 09/01/17 03:20 RT Aerosol Therapy [RC] ASDIRECTED 09/01/17 03:28 Chest 2V [CR] Urgent Assessment:: As above Plan: As above. Extensive precautions were given to the patient and his brother, Jaron, , who are in agreement with the treatment plan. See Patient Instructions for further treatment and plan.
[2017-09-01] MEDS ORDERED: Promethazine 25 MG/ML SDV IM ONE (03:19)
[2017-09-01] MEDS ORDERED: Meperidine PF 50 MG/ML Syringe IM ONE ×3 (03:20→03:34)
[2017-09-01] MEDS ORDERED: methylPREDNISolone Acetate 80 MG/ML SDV IM ONE (03:21)
== END 2017-09-01 04:15 | disposition home or self-care (01) ==
LOC: LL.ED 02:50
DX: K21.9 Gastro-esophageal reflux disease without esophagitis (principal); J45.909 Unspecified asthma, uncomplicated; E11.65 Type 2 diabetes mellitus with hyperglycemia; E03.9 Hypothyroidism, unspecified; M19.90 Unspecified osteoarthritis, unspecified site; I11.0 Hypertensive heart disease with heart failure; I50.9 Heart failure, unspecified; I25.10 Atherosclerotic heart disease of native coronary artery without angina pectoris; E78.00 Pure hypercholesterolemia, unspecified; Z79.82 Long term (current) use of aspirin; Z79.899 Other long term (current) drug therapy
CPT/HCPCS: 71046; 96372; 99284; J1040; J2175; J2550

== ENCOUNTER 2022-07-19 18:26 | Inpatient (IN) | payer MEDICAID, MEDICARE ==
[2022-07-19] MEDS ORDERED: methylPREDNISolone Sodium Succinate 125 MG/2 ML SDV IVPUSH ONE (19:30)
[2022-07-19 19:42] LABS: CORONAVIRUS COVID-19 NAA NEGATIVE (NEGATIVE); RESPIRATORY SYNCYTIAL VIR NAA NEGATIVE (NEGATIVE)
[2022-07-19] MEDS ORDERED: Albuterol/Ipratropium 3.0-0.5 MG/3 ML Neb Soln NEB ONE ×2 (19:46→20:05)
[2022-07-19 20:21] LABS: ANION GAP 10.7 meq/L (7-15)
[2022-07-19] MEDS ORDERED: Sodium Chloride 0.9% 1,000 ML IV ONE (20:41)
[2022-07-19] MEDS ORDERED: LORazepam 2 MG/ML SDV IVPUSH ONE (20:42)
[2022-07-19] MEDS ORDERED: Iopamidol 612 MG/ML 100 ML Bottle IVPUSH STA (20:57)
[2022-07-19] MEDS ORDERED: Iopamidol 755 Mg/ML 100 ML Bottle IVPUSH STA (21:13)
[2022-07-20] MEDS ORDERED: Sodium Chloride 0.9% 1,000 ML IV SCH (00:15)
[2022-07-20] MEDS: Azithromycin 500 MG in Sodium Chloride 0.9% 250 ML IV SCH ×2 (01:28→23:38)
[2022-07-20] MEDS ORDERED: Lisinopril 10 MG Tab PO ONE (02:25)
[2022-07-20] MEDS ORDERED: Atenolol 25 MG Tab PO ONE (02:26)
[2022-07-20] MEDS: cefTRIAXone 1 GM in Sodium Chloride 0.9% 100 ML IV SCH (02:44)
[2022-07-20] MEDS: Albuterol/Ipratropium 3.0-0.5 MG/3 ML Neb Soln NEB SCH ×4 (02:49→20:11)
[2022-07-20] MEDS ORDERED: Non-Formulary Medication 1 Each (Liraglutide [Victoza 2-Pak] 18 MG/3 ML Pen) SQ SCH (08:00)
[2022-07-20] MEDS ORDERED: BETAXOLOL 10 MG PO SCH (08:00)
[2022-07-20] MEDS: Dextromethorphan/guaiFENesin 600-30 MG Tab.ER PO SCH ×2 (08:19→17:11)
[2022-07-20] MEDS: Aspirin 81 MG Tab.Chew PO SCH (08:19)
[2022-07-20] MEDS: Tamsulosin 0.4 MG Cap.ER PO SCH (08:19)
[2022-07-20] MEDS: Clopidogrel 75 MG Tab PO SCH (08:19)
[2022-07-20] MEDS: Levothyroxine 100 MCG Tab PO SCH (08:20)
[2022-07-20] MEDS: Lisinopril 10 MG Tab PO SCH (08:45)
[2022-07-20] MEDS ORDERED: methylPREDNISolone Sodium Succinate 125 MG/2 ML SDV IVPUSH ONE (09:00)
[2022-07-20] MEDS ORDERED: Glucagon,Human Recombinant 1 MG Vial IM PRN (09:13)
[2022-07-20] MEDS ORDERED: 50% Dextrose in Water 50 ML Syringe IVPUSH PRN (09:13)
[2022-07-20 09:29] LABS: ANION GAP 11.3 meq/L (7-15)
[2022-07-20] MEDS ORDERED: Magnesium Sulfate/Water 2 GM in Premix Bag 1 BAG IV ONE (10:24)
[2022-07-20] MEDS: Furosemide 40 MG/4 ML VIAL IVPUSH SCH (11:28)
[2022-07-20] MEDS ORDERED: Insulin Regular, Human 100 Units/ML 3 ML Vial ONE (11:36)
[2022-07-20] MEDS: Insulin Regular, Human 100 Units/ML 3 ML Vial SUBCUT SCH ×3 (11:47→17:08)
[2022-07-20] MEDS ORDERED: atorvaSTATin 40 MG Tab PO SCH (20:00)
[2022-07-20] MEDS: Trospium 20 MG Tab PO SCH (20:11)
[2022-07-21] MEDS: cefTRIAXone 1 GM in Sodium Chloride 0.9% 100 ML IV SCH (01:08)
[2022-07-21] MEDS: Albuterol/Ipratropium 3.0-0.5 MG/3 ML Neb Soln NEB SCH ×3 (01:08→14:04)
[2022-07-21] MEDS: Aspirin 81 MG Tab.Chew PO SCH (07:34)
[2022-07-21] MEDS: Levothyroxine 100 MCG Tab PO SCH (07:34)
[2022-07-21] MEDS: Clopidogrel 75 MG Tab PO SCH (07:34)
[2022-07-21] MEDS: Tamsulosin 0.4 MG Cap.ER PO SCH (07:34)
[2022-07-21] MEDS: Lisinopril 10 MG Tab PO SCH (07:34)
[2022-07-21] MEDS: Trospium 20 MG Tab PO SCH (07:35)
[2022-07-21] MEDS: Dextromethorphan/guaiFENesin 600-30 MG Tab.ER PO SCH (07:35)
[2022-07-21] MEDS: Insulin Regular, Human 100 Units/ML 3 ML Vial SUBCUT SCH ×2 (07:36→11:34)
[2022-07-21] MEDS: Furosemide 40 MG/4 ML VIAL IVPUSH SCH (07:37)
[2022-07-21 07:43] LABS: ANION GAP 8.5 meq/L (7-15)
[2022-07-21] MEDS ORDERED: methylPREDNISolone Sodium Succinate 125 MG/2 ML SDV IVPUSH ONE (08:00)
[2022-07-21 11:39] VITALS: BP 127/79; PULSE 104
== END 2022-07-21 16:30 | disposition home or self-care (01) | DRG 194 ==
LOC: LL.ED 18:26 → LL.MS 23:16 → OBSVTOIN 07-20 09:59
PROVIDERS: ADMIT Emergency Medicine; ATTEND Emergency Medicine
DX: J18.9 Pneumonia, unspecified organism (principal); J44.0 Chronic obstructive pulmonary disease with (acute) lower respiratory infection; E83.42 Hypomagnesemia; E78.00 Pure hypercholesterolemia, unspecified; J44.9 Chronic obstructive pulmonary disease, unspecified; I10 Essential (primary) hypertension; I45.10 Unspecified right bundle-branch block; I25.10 Atherosclerotic heart disease of native coronary artery without angina pectoris; I50.9 Heart failure, unspecified; K59.09 Other constipation; K57.90 Diverticulosis of intestine, part unspecified, without perforation or abscess without bleeding; Z79.82 Long term (current) use of aspirin; Z79.84 Long term (current) use of oral hypoglycemic drugs; Z20.822 Contact with and (suspected) exposure to COVID-19; K21.9 Gastro-esophageal reflux disease without esophagitis; M19.90 Unspecified osteoarthritis, unspecified site; M54.9 Dorsalgia, unspecified; M54.2 Cervicalgia; G89.29 Other chronic pain; E03.9 Hypothyroidism, unspecified; E11.9 Type 2 diabetes mellitus without complications; N40.0 Benign prostatic hyperplasia without lower urinary tract symptoms; I11.0 Hypertensive heart disease with heart failure; Z79.899 Other long term (current) drug therapy
CPT/HCPCS: 0241U; 36415; 71046; 71275; 80048; 80053; 81003; 82947; 83605; 83735; 83880; 84484; 85025; 85379; 93005; 94640; 96361; 96365; 96367; 96374; 96375; 96376; 97162-GP; 99285-25; A9270-GY; G0378; J0456; J0696; J1815-GY; J1940; J2060; J2930; J3475; J7030; J7050; J7620-GY; Q9967

== ENCOUNTER 2023-09-15 08:17 | Inpatient (IN) | payer MEDICARE ==
[2023-09-15 08:44] LABS: BASOPHILS ABSOLUTE AUTO 0.07 K/uL (0.00-0.20); BASOPHILS PERCENT AUTO 0.7 % (0.0-2.0); EOSINOPHILS ABSOLUTE AUTO 0.23 K/uL (0.00-0.50); EOSINOPHILS PERCENT AUTO 2.2 % (0.0-5.0); HEMATOCRIT 43.5 % (39.0-49.0); HEMOGLOBIN 14.6 g/dL (13.1-16.8); LYMPHOCYTES PERCENT AUTO 20.3 % (10.0-50.0); MEAN CORPUSCULAR HEMOGLOBIN 30.9 pg (28.2-33.3); MEAN CORPUSCULAR HGB CONC 33.6 g/dL (31.7-36.0); MONOCYTES ABSOLUTE AUTO 1.17 K/uL (0.00-1.00); MONOCYTES PERCENT AUTO 11.3 % (2.0-14.0); NEUTROPHILS ABSOLUTE AUTO 6.75 K/uL (1.40-7.00); NEUTROPHILS PERCENT AUTO 65.5 % (45.0-80.0); PLATELET COUNT,PLT 218 K/uL (150-350); RED BLOOD CELL COUNT 4.73 M/uL (4.33-5.41); RED CELL DISTRIBUTION WIDTH 13.6 % (11.2-14.1); WHITE BLOOD CELL COUNT,WBC 10.3 K/uL (4.0-10.2)
[2023-09-15] MEDS: Sodium Chloride 0.9% 1,000 ML IV ONE ×2 (08:45→10:13)
[2023-09-15] MEDS: Morphine 2 MG/ML SYRINGE IVPUSH ONE (08:47)
[2023-09-15] MEDS: Ondansetron 4 MG/2 ML SDV IVPUSH ONE (08:49)
[2023-09-15] MEDS: Sodium Chloride 0.9% 10 ML Syringe FLUSH PRN (08:55)
[2023-09-15 09:14] LABS: ALANINE AMINOTRANSFERASE,ALT 107 U/L (12-78); ALBUMIN 3.2 g/dL (3.4-5.0); ALKALINE PHOSPHATASE 139 IU/L (46-116); ANION GAP 14.8 meq/L (7-15); ASPARTATE AMNIOTRANSFERASE,AST 63 U/L (15-37); BLOOD UREA NITROGEN,BUN 19 mg/dL (7-18); CALCIUM 9.4 mg/dL (8.5-10.1); CARBON DIOXIDE,CO2 24.1 mmol/L (21.0-32.0); CHLORIDE,CL 98 mmol/L (98-107); CREATININE 1.43 mg/dL (0.51-1.17); MAGNESIUM 1.5 mg/dL (1.8-2.4); POTASSIUM,K 3.9 mmol/L (3.5-5.1); PRO B-TYPE NATRIUR PEPT,BNPPRO 589 pg/mL (0-125); PROTEIN TOTAL,TP 7.2 g/dL (6.4-8.2); SODIUM,NA 133 mmol/L (136-145)
[2023-09-15 09:15] LABS: ESTIMATED GFR 54 mL/min (>=60); GLUCOSE RANDOM 452 mg/dL (70-99)
[2023-09-15] MEDS ORDERED: Glucagon,Human Recombinant 1 MG Vial IM PRN ×3 (09:18→13:27)
[2023-09-15] MEDS ORDERED: 50% Dextrose in Water 50 ML Syringe IVPUSH PRN ×3 (09:18→13:27)
[2023-09-15 09:20] LABS: APPEARANCE,URINE SLIGHTLY CLOUDY; BILIRUBIN,URINE NEGATIVE (NEGATIVE); COLOR,URINE YELLOW; GLUCOSE,URINE 500 mg/dL (NEGATIVE); KETONES,URINE 15 mg/dL (NEGATIVE); LEUKOCYTE ESTERASE,URINE NEGATIVE (NEGATIVE); NITRITE,URINE NEGATIVE (NEGATIVE); OCCULT BLOOD,URINE NEGATIVE (NEGATIVE); PH,URINE 5.5 (5.0-9.0); PROTEIN,URINE TRACE mg/dL (NEGATIVE); UROBILINOGEN,URINE 0.2 E.U./dL (0.2-1.0)
[2023-09-15] MEDS: Insulin Regular, Human 100 Units/ML 3 ML Vial SUBCUT ONE ×2 (09:31→11:53)
[2023-09-15 09:34] LABS: BACTERIA,URINE RARE /HPF (NONE TO FEW); EPITHELIAL CELLS,URINE RARE /LPF; RBC,URINE 0-5 /HPF; WBC,URINE 0-5 /HPF
[2023-09-15] MEDS: Magnesium Sulfate/Water 2 GM in Premix Bag 1 BAG IV ONE (09:37)
[2023-09-15 10:14] LABS: CORONAVIRUS COVID-19 NAA NEGATIVE (NEGATIVE); INFLUENZA A NAA NEGATIVE (NEGATIVE); INFLUENZA B NAA NEGATIVE (NEGATIVE); RESPIRATORY SYNCYTIAL VIR NAA NEGATIVE (NEGATIVE)
[2023-09-15] MEDS: Iopamidol 755 Mg/ML 100 ML Bottle IVPUSH STA (10:31)
[2023-09-15] MEDS: Acetaminophen 325 MG Tab PO ONE (10:54)
[2023-09-15] MEDS: Orphenadrine 60 MG/2 ML Inj IV ONE (10:57)
[2023-09-15] MEDS: Sodium Chloride 0.9% 1,000 ML IV SCH (12:00)
[2023-09-15] MEDS ORDERED: Orphenadrine 60 MG/2 ML Inj IM SCH (13:30)
[2023-09-15] MEDS ORDERED: Albuterol 6.7 GM Inhaler INH PRN (14:46)
[2023-09-15 17:24] LABS: HEMOGLOBIN A1C > 14.0 % (4.3-5.7)
[2023-09-15] MEDS: Insulin Regular, Human 100 Units/ML 3 ML Vial SUBCUT SCH (18:21)
[2023-09-15] MEDS: Insulin Glarg,Human.Rec.Analog 100 Unit/ML 10 ML Vial SUBCUT SCH (18:24)
[2023-09-15] MEDS: Enoxaparin 60 MG/0.6 ML Syringe SUBCUT SCH (18:27)
[2023-09-15] MEDS: Orphenadrine 100 MG Tab.ER PO SCH (20:07)
[2023-09-15] MEDS: atorvaSTATin 40 MG Tab PO SCH (20:07)
[2023-09-15] MEDS: Acetaminophen 325 MG Tab PO PRN (20:11)
[2023-09-16] MEDS: Ezetimibe 10 MG Tab PO SCH (07:28)
[2023-09-16] MEDS: Pantoprazole 40 MG Tab.CR PO SCH (07:28)
[2023-09-16] MEDS: Aspirin 81 MG Tab.EC PO SCH (07:28)
[2023-09-16] MEDS: Levothyroxine 150 MCG Tab PO SCH (07:28)
[2023-09-16] MEDS: Lisinopril 10 MG Tab PO SCH (07:28)
[2023-09-16] MEDS: Tamsulosin 0.4 MG Cap.ER PO SCH (07:28)
[2023-09-16 07:46] LABS: ANION GAP 6.4 meq/L (7-15); CALCIUM 8.4 mg/dL (8.5-10.1); CARBON DIOXIDE,CO2 25.6 mmol/L (21.0-32.0); CREATININE 1.12 mg/dL (0.51-1.17); EST CRCL DRUG DOSING (CG) 69.1 mL/min; MAGNESIUM 1.7 mg/dL (1.8-2.4)
[2023-09-16 08:07] LABS: BASOPHILS ABSOLUTE AUTO 0.03 K/uL (0.00-0.20); BASOPHILS PERCENT AUTO 0.4 % (0.0-2.0); EOSINOPHILS ABSOLUTE AUTO 0.23 K/uL (0.00-0.50); EOSINOPHILS PERCENT AUTO 3.1 % (0.0-5.0); HEMATOCRIT 38.4 % (39.0-49.0); HEMOGLOBIN 12.4 g/dL (13.1-16.8); LYMPHOCYTES ABSOLUTE AUTO 2.06 K/uL (0.50-3.50); LYMPHOCYTES PERCENT AUTO 27.8 % (10.0-50.0); MEAN CORPUSCULAR HEMOGLOBIN 30.5 pg (28.2-33.3); MEAN CORPUSCULAR HGB CONC 32.3 g/dL (31.7-36.0); MEAN CORPUSCULAR VOLUME 94.3 fL (84.0-98.0); MONOCYTES ABSOLUTE AUTO 0.99 K/uL (0.00-1.00); MONOCYTES PERCENT AUTO 13.4 % (2.0-14.0); NEUTROPHILS ABSOLUTE AUTO 4.09 K/uL (1.40-7.00); NEUTROPHILS PERCENT AUTO 55.3 % (45.0-80.0); PLATELET COUNT,PLT 190 K/uL (150-350); RED BLOOD CELL COUNT 4.07 M/uL (4.33-5.41); RED CELL DISTRIBUTION WIDTH 13.5 % (11.2-14.1); WHITE BLOOD CELL COUNT,WBC 7.4 K/uL (4.0-10.2)
[2023-09-16] MEDS: Sodium Chloride 0.9% 10 ML Syringe FLUSH SCH (17:18)
[2023-09-16] MEDS: Insulin Regular, Human 100 Units/ML 3 ML Vial SUBCUT ONE (20:55)
[2023-09-17 07:27] LABS: BASOPHILS ABSOLUTE AUTO 0.03 K/uL (0.00-0.20); BASOPHILS PERCENT AUTO 0.4 % (0.0-2.0); EOSINOPHILS ABSOLUTE AUTO 0.31 K/uL (0.00-0.50); EOSINOPHILS PERCENT AUTO 4.6 % (0.0-5.0); HEMATOCRIT 42.3 % (39.0-49.0); HEMOGLOBIN 13.7 g/dL (13.1-16.8); LYMPHOCYTES ABSOLUTE AUTO 2.46 K/uL (0.50-3.50); LYMPHOCYTES PERCENT AUTO 36.6 % (10.0-50.0); MEAN CORPUSCULAR HEMOGLOBIN 30.6 pg (28.2-33.3); MEAN CORPUSCULAR HGB CONC 32.4 g/dL (31.7-36.0); MEAN CORPUSCULAR VOLUME 94.4 fL (84.0-98.0); MONOCYTES ABSOLUTE AUTO 0.61 K/uL (0.00-1.00); MONOCYTES PERCENT AUTO 9.1 % (2.0-14.0); NEUTROPHILS ABSOLUTE AUTO 3.31 K/uL (1.40-7.00); NEUTROPHILS PERCENT AUTO 49.3 % (45.0-80.0); PLATELET COUNT,PLT 210 K/uL (150-350); RED BLOOD CELL COUNT 4.48 M/uL (4.33-5.41); RED CELL DISTRIBUTION WIDTH 13.7 % (11.2-14.1); WHITE BLOOD CELL COUNT,WBC 6.7 K/uL (4.0-10.2)
[2023-09-17 07:41] LABS: ANION GAP 6.8 meq/L (7-15); CALCIUM 9.1 mg/dL (8.5-10.1); CARBON DIOXIDE,CO2 29.2 mmol/L (21.0-32.0); CREATININE 1.18 mg/dL (0.51-1.17); EST CRCL DRUG DOSING (CG) 65.59 mL/min; POTASSIUM,K 4.4 mmol/L (3.5-5.1)
[2023-09-17 15:03] VITALS: BP 127/78; PULSE 101
== END 2023-09-17 15:30 | disposition home or self-care (01) | DRG 638 ==
LOC: LL.ED 08:17 → LL.MS 12:09
PROVIDERS: ADMIT Emergency Medicine; ATTEND Emergency Medicine
DX: E11.65 Type 2 diabetes mellitus with hyperglycemia (principal); E87.20 Acidosis, unspecified; R74.02 Elevation of levels of lactic acid dehydrogenase [LDH]; E86.0 Dehydration; G31.84 Mild cognitive impairment of uncertain or unknown etiology; E78.00 Pure hypercholesterolemia, unspecified; I50.9 Heart failure, unspecified; I11.0 Hypertensive heart disease with heart failure; J44.9 Chronic obstructive pulmonary disease, unspecified; K59.09 Other constipation; K21.9 Gastro-esophageal reflux disease without esophagitis; N40.0 Benign prostatic hyperplasia without lower urinary tract symptoms; M54.2 Cervicalgia; G89.29 Other chronic pain; M19.90 Unspecified osteoarthritis, unspecified site; E03.9 Hypothyroidism, unspecified; K76.0 Fatty (change of) liver, not elsewhere classified; I25.10 Atherosclerotic heart disease of native coronary artery without angina pectoris; E83.42 Hypomagnesemia; E78.5 Hyperlipidemia, unspecified; B34.9 Viral infection, unspecified; Z79.51 Long term (current) use of inhaled steroids; Z79.84 Long term (current) use of oral hypoglycemic drugs; Z79.82 Long term (current) use of aspirin; Z79.4 Long term (current) use of insulin; Z79.899 Other long term (current) drug therapy; Z98.890 Other specified postprocedural states
CPT/HCPCS: 0241U; 36415; 71045; 71260; 74177; 80048; 80053; 81001; 82947; 83036; 83605; 83735; 83880; 84443; 84484; 85025; 85379; 93005; 93010; 97162-GP; 97165-GO; A9270-GY; J1650; J1815-GY; J2270; J2360; J2405; J3475; J3490; J7030; Q9967

== ENCOUNTER 2025-04-17 21:30 | Inpatient (IN) | payer MEDICARE ==
[2025-04-17] MEDS ORDERED: Naloxone 0.4 MG/ML SDV IVPUSH PRN (21:45)
[2025-04-17] MEDS: Ondansetron 4 MG/2 ML SDV IVPUSH ONE (21:52)
[2025-04-17] MEDS: Alum Hydrox/Mag Hydrox/Simeth 30 ML, Lidocaine 2% 15 ML PO ONE (21:58)
[2025-04-17] MEDS: Sodium Chloride 0.9% 10 ML Syringe FLUSH PRN (21:59)
[2025-04-17 22:00] LABS: BASOPHILS ABSOLUTE AUTO 0.05 K/uL (0.00-0.20); BASOPHILS PERCENT AUTO 0.5 % (0.0-2.0); EOSINOPHILS ABSOLUTE AUTO 0.31 K/uL (0.00-0.50); EOSINOPHILS PERCENT AUTO 3.0 % (0.0-5.0); IMMATURE GRAN ABSOLUTE AUTO 0.02 10^3/uL (0.00-0.04); IMMATURE GRAN PERCENT AUTO 0.2 % (0.0-0.4); LYMPHOCYTES ABSOLUTE AUTO 3.77 K/uL (0.50-3.50); LYMPHOCYTES PERCENT AUTO 36.1 % (10.0-50.0); MONOCYTES ABSOLUTE AUTO 0.83 K/uL (0.00-1.00); MONOCYTES PERCENT AUTO 8.0 % (2.0-14.0); NEUTROPHILS ABSOLUTE AUTO 5.46 K/uL (1.40-7.00); NEUTROPHILS PERCENT AUTO 52.2 % (45.0-80.0); PLATELET COUNT,PLT 220 K/uL (150-350); RED BLOOD CELL COUNT 5.05 M/uL (4.33-5.41); RED CELL DISTRIBUTION WIDTH 12.6 % (11.2-14.1); WHITE BLOOD CELL COUNT,WBC 10.4 K/uL (4.0-10.2)
[2025-04-17 22:25] LABS: ALANINE AMINOTRANSFERASE,ALT 36.0 U/L (12-78); ASPARTATE AMNIOTRANSFERASE,AST 29.0 U/L (15-37); BILIRUBIN TOTAL 0.7 mg/dL (0.2-1.0); BLOOD UREA NITROGEN,BUN 22.0 mg/dL (7-18); CARBON DIOXIDE,CO2 24.7 mmol/L (21.0-32.0); CHLORIDE,CL 103.0 mmol/L (98-107); CREATININE 1.34 mg/dL (0.51-1.17); EST CRCL DRUG DOSING (CG) 56.19 mL/min; ESTIMATED GFR 58.0 mL/min (>=60); GLUCOSE RANDOM 183.0 mg/dL (70-99); POTASSIUM,K 4.2 mmol/L (3.5-5.1); PROTEIN TOTAL,TP 7.7 g/dL (6.4-8.2); SODIUM,NA 142.0 mmol/L (136-145)
[2025-04-17 22:30] LABS: LACTIC ACID 2.9 mmol/L (0.4-2.0)
[2025-04-17] MEDS: Ketorolac 15 MG/ML SDV IVPUSH ONE (22:56)
[2025-04-17] MEDS: Iopamidol 612 MG/ML 100 ML Bottle ONE (23:10)
[2025-04-17] MEDS: Lactated Ringers 1,000 ML IV SCH (23:24)
[2025-04-18] MEDS ORDERED: Ondansetron 4 MG/2 ML SDV IVPUSH PRN (00:34)
[2025-04-18] MEDS: Magnesium Hydroxide 400 MG/5 ML Susp 30 ML Cup PO ONE (00:44)
[2025-04-18] MEDS: Lactated Ringers 1,000 ML IV SCH (02:11)
[2025-04-18 07:36] LABS: BASOPHILS ABSOLUTE AUTO 0.05 K/uL (0.00-0.20); BASOPHILS PERCENT AUTO 0.5 % (0.0-2.0); EOSINOPHILS ABSOLUTE AUTO 0.16 K/uL (0.00-0.50); EOSINOPHILS PERCENT AUTO 1.6 % (0.0-5.0); IMMATURE GRAN ABSOLUTE AUTO 0.02 10^3/uL (0.00-0.04); IMMATURE GRAN PERCENT AUTO 0.2 % (0.0-0.4); LYMPHOCYTES ABSOLUTE AUTO 3.43 K/uL (0.50-3.50); LYMPHOCYTES PERCENT AUTO 35.0 % (10.0-50.0); MONOCYTES ABSOLUTE AUTO 0.71 K/uL (0.00-1.00); MONOCYTES PERCENT AUTO 7.2 % (2.0-14.0); NEUTROPHILS ABSOLUTE AUTO 5.43 K/uL (1.40-7.00); NEUTROPHILS PERCENT AUTO 55.5 % (45.0-80.0); PLATELET COUNT,PLT 193 K/uL (150-350); RED BLOOD CELL COUNT 4.30 M/uL (4.33-5.41); RED CELL DISTRIBUTION WIDTH 12.8 % (11.2-14.1); WHITE BLOOD CELL COUNT,WBC 9.8 K/uL (4.0-10.2)
[2025-04-18 07:58] LABS: ALANINE AMINOTRANSFERASE,ALT 29.0 U/L (12-78); ASPARTATE AMNIOTRANSFERASE,AST 22.0 U/L (15-37); BILIRUBIN TOTAL 0.6 mg/dL (0.2-1.0); BLOOD UREA NITROGEN,BUN 23.0 mg/dL (7-18); CARBON DIOXIDE,CO2 30.2 mmol/L (21.0-32.0); CHLORIDE,CL 102.0 mmol/L (98-107); CREATININE 1.32 mg/dL (0.51-1.17); EST CRCL DRUG DOSING (CG) 57.05 mL/min; GLUCOSE RANDOM 187.0 mg/dL (70-99); POTASSIUM,K 4.8 mmol/L (3.5-5.1); PROTEIN TOTAL,TP 6.4 g/dL (6.4-8.2); SODIUM,NA 140.0 mmol/L (136-145)
[2025-04-18 08:00] LABS: ESTIMATED GFR 59.0 mL/min (>=60)
[2025-04-18] MEDS ORDERED: BETAXOLOL 10 MG PO SCH (08:00)
[2025-04-18] MEDS: Cholecalciferol (Vitamin D3) 25 MCG Tab PO SCH (08:05)
[2025-04-18] MEDS: Insulin Glarg,Human.Rec.Analog 100 Unit/ML 10 ML Vial SUBCUT SCH (08:08)
[2025-04-18 08:09] LABS: APPEARANCE,URINE CLEAR; GLUCOSE,URINE 100 mg/dL (NEGATIVE); OCCULT BLOOD,URINE NEGATIVE (NEGATIVE)
[2025-04-18] MEDS ORDERED: Lactated Ringers 1,000 ML IV SCH (09:30)
[2025-04-18] MEDS: Nystatin Topical Powder 15 GM Bottle TOP SCH (12:23)
[2025-04-18] MEDS ORDERED: Nystatin Topical Powder 15 GM Bottle TOP SCH (13:00)
[2025-04-18] MEDS: Iopamidol 612 MG/ML 100 ML Bottle IVPUSH ONE (21:01)
[2025-04-18 21:52] VITALS: PULSE 94
[2025-04-19 07:37] VITALS: BP 143/67
== END 2025-04-19 11:48 | disposition home or self-care (01) | DRG 641 ==
LOC: LL.ED 21:30 → OBSVTOIN 04-18 00:10 → LL.MS 04-18 00:10
PROVIDERS: ADMIT Physician Assistant; ATTEND Physician Assistant
DX: E86.0 Dehydration (principal); E87.20 Acidosis, unspecified; R11.2 Nausea with vomiting, unspecified; I25.10 Atherosclerotic heart disease of native coronary artery without angina pectoris; E66.9 Obesity, unspecified; E03.9 Hypothyroidism, unspecified; E11.9 Type 2 diabetes mellitus without complications; N40.0 Benign prostatic hyperplasia without lower urinary tract symptoms; K21.9 Gastro-esophageal reflux disease without esophagitis; M19.90 Unspecified osteoarthritis, unspecified site; Z79.51 Long term (current) use of inhaled steroids; E78.00 Pure hypercholesterolemia, unspecified; I11.0 Hypertensive heart disease with heart failure; I50.9 Heart failure, unspecified; J44.9 Chronic obstructive pulmonary disease, unspecified; K59.09 Other constipation; M54.9 Dorsalgia, unspecified; G89.29 Other chronic pain; M54.2 Cervicalgia; Z79.899 Other long term (current) drug therapy; Z79.52 Long term (current) use of systemic steroids; Z79.84 Long term (current) use of oral hypoglycemic drugs; Z79.82 Long term (current) use of aspirin; Z79.4 Long term (current) use of insulin; Z79.890 Hormone replacement therapy
CPT/HCPCS: 36415; 74177; 80053; 83605; 83690; 83735; 85025; 86140; 87040 ×2; 96361; 96374; 96375 ×2; 96376 ×2; 99285; A9270 ×2; J1171; J1885; J2405; J2765; J7120; Q9967; 81003; 82947; 99284; J1815-GY; J2470